=== PATIENT | female | born 1945 | race Caucasian/White ===

== ENCOUNTER 2017-08-16 11:05 | Outpatient (CLI) | payer MEDICARE, BC | END 2017-08-16 11:06 | disposition home or self-care (01) | LOC: BICRAD 11:05 | PROVIDERS: ATTEND Internal Medicine | DX: M54.2 Cervicalgia (principal); M54.6 Pain in thoracic spine; M47.893 Other spondylosis, cervicothoracic region | CPT/HCPCS: 72040; 72072 ==

== ENCOUNTER 2017-08-19 08:00 | Outpatient (CLI) | payer MEDICARE, BC | END 2017-08-19 08:01 | disposition home or self-care (01) | LOC: BICCT 08:00 | PROVIDERS: ATTEND Internal Medicine | DX: R51 Headache (principal); G93.9 Disorder of brain, unspecified | CPT/HCPCS: 70450 ==

== ENCOUNTER 2017-11-07 08:43 | Outpatient (CLI) | payer MEDICARE, BC | END 2017-11-07 08:44 | disposition home or self-care (01) | LOC: BICRAD 08:43 | PROVIDERS: ATTEND Internal Medicine | DX: M54.5 Low back pain (principal); M47.896 Other spondylosis, lumbar region | CPT/HCPCS: 72100 ==

== ENCOUNTER 2018-07-26 09:55 | Inpatient (IN) | payer MEDICARE, BC ==
[2018-07-26 10:49] LABS: #Eosinphils 0.1 thou/uL (0.0-0.7); #Lymphocytes 1.7 thou/uL (1.20-3.40); #Monocytes 0.8 thou/uL (0.11-0.59); %Basophils 0.4 % (0.0-1.0); %Eosinophils 1.4 % (0.0-10.0); %Monocytes 7.7 % (0.0-10.0); %Neutrophils 74.5 % (42.0-75.0); Hemoglobin 13.5 g/dL (12.0-16.0); Mean Corpuscular HGB CONC 33.6 g/dL (32.0-36.0); Mean Corpuscular Hemoglobin 30.7 pg (27.0-31.0); Mean Corpuscular Volume 91.2 fL (78.0-98.0); Mean Platelet Volume 8.1 fL (7.4-10.4); Platelet Count 280 thou/uL (130-400); RBC Distribution Width 13.5 % (11.5-14.5); Red Blood Cell (RBC) Count 4.41 mill/uL (4.20-5.40); White Blood Cell (WBC) Count 10.8 thou/uL (4.8-10.8)
[2018-07-26 11:13] LABS: ALT (SGPT) 18 U/L (8-55); AST (SGOT) 19 U/L (5-34); Albumin 4.2 g/dL (3.4-4.8); Alkaline Phosphatase 62 U/L (40-150); Anion Gap 16 mmol/L (10-20); BUN (Urea Nitrogen) 43 mg/dL (9.8-20.1); Bilirubin, Total 0.5 mg/dL (0.2-1.2); CK (CPK) 77 U/L (29-168); Calc. Creatinine Clearance 0 mL/min (70-130); Calcium 9.9 mg/dL (7.8-10.44); Carbon Dioxide 27 mmol/L (23-31); Chloride 102 mmol/L (98-107); Estimated GFR-MDRD 13; Globulin 2.8 g/dL (2.4-3.5); Glucose 111 mg/dL (83-110); Potassium 3.1 mmol/L (3.5-5.1)
[2018-07-26 11:37] LABS: Sodium 142 mmol/L (136-145)
--- NOTE | 2018-07-26 11:37 | CT ---
CT HEAD WITHOUT CONTRAST; Date: 07/26/18 Multiple axial tomograms obtained through the head without enhancement. INDICATION: Dizziness. FINDINGS: Ventricles have normal size and position. No evidence of intracranial mass or hemorrhage. No evidence of cortical infarct. Sinuses are clear. IMPRESSION: No acute findings. POS: TPC
[2018-07-26] MEDS ORDERED: ALPRAZolam 0.5 MG TAB PO PRN (13:46)
[2018-07-26] MEDS ORDERED: Potassium Chloride 20 MEQ TAB PO SCH (14:30)
--- NOTE | 2018-07-26 15:32 | CON ---
DATE OF CONSULTATION: 07/26/2018 NEPHROLOGY CONSULTATION REASON FOR CONSULTATION: Elevated creatinine. HISTORY OF PRESENT ILLNESS: This is a very pleasant 73-year-old female, who presented for possible CVA, was noted to have a potassium of 3.1, creatinine of 3.45. Her last reported creatinine was 1.1 about one month ago. The patient has had some diarrhea and has been taking some NSAIDs. The patient denies no headaches, numbness, tingling, or weakness. Denies any nausea, vomiting, or chest pain. PAST MEDICAL HISTORY: Significant for hypertension, breast cancer. PAST SURGICAL HISTORY: History of back surgery, cholecystectomy, hysterectomy . FAMILY HISTORY: Negative for ESRD. ALLERGIES: REVIEWED. MEDICATIONS: Home medication list reviewed. REVIEW OF SYSTEMS: A 15-point review of systems was performed and was negative except for positives noted above. NECK: No swelling or lumps. NOSE: No epistaxis or discharge. EYES: No diplopia or pain. MUSCULOSKELETAL: No joint pain. NEUROPSYCHIATRIC SYSTEMS: No suicidal ideation. No ideation. SKIN: Denies any rash or ulcer. CONSTITUTIONAL: No fever or chills. OBJECTIVE: GENERAL: The patient is awake, alert, in no acute distress. VITAL SIGNS: Afebrile, pulse 53, breathing 16, and blood pressure 132/78. GENERAL APPEARANCE AND MENTAL STATUS: Fair. HEAD/NECK: Normocephalic. Atraumatic. EYES: EOMI. No deformity. EARS: Clear. No ulcers. NOSE: Intact. No lesions. MOUTH: Clear. No discharge. THROAT: Clear. No exudate. LUNGS: Clear. No crackles. CARDIAC: S1, S2. No rub. ABDOMEN: Benign. Bowel sounds positive. GENITALIA/RECTUM: Asif absent. BACK/EXTREMITIES: Edema 0+. NEUROLOGICAL: Alert and motor intact. LABORATORY DATA: Labs show creatinine of 3.4. ASSESSMENT: 1. Acute kidney injury with chronic kidney disease, most likely due to diarrhea, nonsteroidal anti-inflammatory drug use. Recommend hydration. 2. Anemia, stable. 3. Medication based on glomerular filtration rate area appropriate. No indication for dialysis at this time. 4. We would recommend ordering renal ultrasound. Job ID: [id number]
[2018-07-26 15:42] VITALS: BMI 36.6
--- NOTE | 2018-07-26 15:42 | ULT ---
ULTRASOUND RENAL BILATERAL STANDARD: History: Acute kidney injury. Comparison: None. FINDINGS: Right kidney measures 9.2 x 5.1 x 5.3 cm. Left kidney measures 10 x 4.9 x 5 cm. Pre void urinary blad emery volume is 161 ml. There is a cyst in the superior pole left kidney measuring 4 cm. Cyst inferior pole left pole measure s 1.6 cm. There is a relatively isoechoic mass inferior pole right kidney measuring up to 1.8 cm, approximately 20% exophytic. IMPRESSION: Concern for a mass in the inferior pole right kidney for which a nonemergent renal protocol CT or MRI is recommended. Code T POS: CET
[2018-07-26] MEDS: Sodium Chloride 0.9% 1,000 ML IV SCH ×2 (15:52→20:35)
[2018-07-26 17:26] LABS: Bilirubin Negative (Negative); Blood, Urine Small (Negative); Clarity TURBID (Clear); Glucose, Urine (Dipstick) Negative (Negative); Leukocyte Large (Negative); Nitrite Negative (Negative); Protein, Urine (Dipstick) Trace mg/dL (Neg-Trace); Specific Gravity, Urine 1.008 (1.002-1.036); Urobilinogen 0.2 mg/dL (0.2-1.0)
[2018-07-26 17:28] LABS: Bacteria/HPF None Seen HPF (None Seen)
[2018-07-26 17:32] LABS: Pathc Cast-AUWi Flag 3.19 (0-2.49)
[2018-07-26 17:40] LABS: Creatinine, Urine 57.9 mg/dL (47-110)
[2018-07-26 17:45] LABS: Hyaline Casts/LPF 0-3 HYALINE CAST LPF (0-3 Hyaline); Other Casts/LPF None Seen LPF (0-3 Hyaline)
--- NOTE | 2018-07-26 18:07 | HP ---
CHIEF COMPLAINT: Generalized weakness/disorientation. HISTORY OF PRESENT ILLNESS: The patient is a very pleasant 73-year-old female with a history of breast cancer treated with mastectomy, hypertension, and hyperlipidemia, who presented to the hospital with complaints of some confusion and generalized weakness. The patient stated that for the past few days, her family has been complaining that she has been acting a little strangely and the patient herself felt that she had some slurred speech and also some confusion. The patient stated that the past weekend, on Tuesday, she had diarrhea all day, also had some diarrhea on Tuesday. She took couple tablets of ibuprofen on Tuesday. On Tuesday, since she had some itching, she took Benadryl 50 mg 3 times on Tuesday. The patient stated that she has been eating and drinking, however, not as much. She was admitted in the ER, labs were drawn, which indicated an elevated creatinine. Her CT head was normal. PAST MEDICAL HISTORY: History of hypertension, depression, history of breast cancer, and hypercholesterolemia. PAST SURGICAL HISTORY: She had a lumpectomy with lymph node dissection of the right breast in 2004, hysterectomy, and back surgery. MEDICATIONS: She takes; 1. Amlodipine 5 mg daily. 2. Celexa 20 mg daily. 3. Alprazolam 0.25 b.i.d. 4. Losartan/hydrochlorothiazide daily. 5. Tamoxifen 10 mg daily. ALLERGIES: SHE IS ALLERGIC TO CODEINE AND HAS INTOLERANCE TO DEMEROL. REVIEW OF SYSTEMS: All negative except for the ones mentioned above in the HPI. FAMILY HISTORY: She denies any family history of heart disease or kidney disease. PHYSICAL EXAMINATION: VITAL SIGNS: In the ER; her blood pressure was 120/60, heart rate of 89, and temperature of 98.8. GENERAL: She is awake, alert, and oriented x3. Does not appear in any distress. CV: S1 and S2 present. No murmurs, rubs, or gallops. HEENT: Appears to be mildly dehydrated. LUNGS: Clear to auscultation. No rhonchi or wheezes noted. ABDOMEN: Soft and nontender. Bowel sounds are present x2. EXTREMITIES: No edema. Pedal pulses present x2. NEUROLOGIC: Neurovascular guerra, no focal deficits noted. SKIN: No cuts, lesions, or bruises noted. LABORATORY RESULTS: As of the following: Her CT head was negative. CBC indicated WBCs of 10.8, hemoglobin of 13.5, hematocrit of 40.2, and platelets were 280. Chemistry; sodium of 142, potassium of 3.1, BUN of , and creatinine of 3.45. Troponin x1 was negative. LFTs were normal. EKG was normal sinus. ASSESSMENT AND PLAN: The patient is a very pleasant 73-year-old female, who presented to the hospital with generalized weakness and some disorientation. 1. Acute kidney injury. Differential is prerenal, intrinsic versus post. This most likely could be prerenal since she had some dehydration. She is also on NICK and has not been eating or drinking very much. Nephrology has been consulted. We will start the patient on some gentle hydration. Also renal ultrasound has been ordered to rule out any obstruction, causes for her elevated creatinine. The patient only took one dose of ibuprofen. She has not been using too much of that. I will hold her losartan and hydrochlorothiazide for now. We will hold all nephrotoxins and continue with the remaining of her medications. Again as I mentioned, we will start some gentle hydration, and we will also check a urine creatinine and a urine sodium. 2. Hypertension. We will continue her home medications except for holding the losartan and the hydrochlorothiazide. We will continue the Norvasc. 3. Hyperlipidemia. We will continue her home medications. 4. History of anxiety. She ran out of her Xanax about a couple of days ago. We will continue her Xanax. 5. Deep venous thrombosis prophylaxis. We will put the patient on some subcu heparin. Job ID: [id number]
[2018-07-26] MEDS: cefTRIAXone\\ROCEPHIN 1 GM in Sodium Chloride 0.9% 100 ML IVPB SCH (20:33)
[2018-07-26] MEDS: Acetaminophen 325 MG TAB PO PRN (20:39)
[2018-07-27] MEDS: Citalopram 20 MG TAB PO SCH (08:57)
[2018-07-27] MEDS: Amlodipine 5 MG TAB PO SCH (08:58)
[2018-07-27 09:01] LABS: #Basophils 0.1 thou/uL (0.0-0.2); #Eosinphils 0.2 thou/uL (0.0-0.7); #Lymphocytes 2.3 thou/uL (1.20-3.40); #Monocytes 0.6 thou/uL (0.11-0.59); #Neutrophils 3.9 thou/uL (1.40-6.50); %Basophils 1.1 % (0.0-1.0); %Eosinophils 3.2 % (0.0-10.0); %Lymphocytes 32.7 % (21.0-51.0); %Monocytes 8.3 % (0.0-10.0); %Neutrophils 54.6 % (42.0-75.0); Hemoglobin 13.2 g/dL (12.0-16.0); Mean Corpuscular HGB CONC 32.8 g/dL (32.0-36.0); Mean Corpuscular Volume 91.7 fL (78.0-98.0); Mean Platelet Volume 8.4 fL (7.4-10.4); Platelet Count 243 thou/uL (130-400); RBC Distribution Width 13.5 % (11.5-14.5); White Blood Cell (WBC) Count 7.1 thou/uL (4.8-10.8)
[2018-07-27 09:15] LABS: Anion Gap 17 mmol/L (10-20); BUN (Urea Nitrogen) 35 mg/dL (9.8-20.1); Calc. Creatinine Clearance 32 mL/min (70-130); Carbon Dioxide 22 mmol/L (23-31); Chloride 108 mmol/L (98-107); Estimated GFR-MDRD 25; Glucose 80 mg/dL (83-110); Potassium 3.3 mmol/L (3.5-5.1); Sodium 144 mmol/L (136-145)
[2018-07-27 10:36] LABS: Anion Gap 18 mmol/L (10-20); BUN (Urea Nitrogen) 34 mg/dL (9.8-20.1); Calc. Creatinine Clearance 35 mL/min (70-130); Calcium 9.3 mg/dL (7.8-10.44); Carbon Dioxide 25 mmol/L (23-31); Chloride 106 mmol/L (98-107); Estimated GFR-MDRD 27; Glucose 91 mg/dL (83-110); Potassium 3.9 mmol/L (3.5-5.1); Sodium 145 mmol/L (136-145)
[2018-07-27] MEDS: Sodium Chloride 0.9% 1,000 ML IV SCH (12:11)
[2018-07-27] MEDS ORDERED: ALPRAZolam 0.25 MG TAB PO PRN (16:15)
--- NOTE | 2018-07-27 16:27 | PDOC.PN ---
- Subjective Encounter Start Date: 07/27/18 Encounter Start Time: 10:30 Subjective: pt up in bed no complains - Objective Resuscitation Status - Order Detail: 07/26/18 13:45 Resuscitation Status Routine Resuscitation Status: FULL: Full Resuscitation Vital Signs & Weight: Vital Signs (12 hours) Temp Pulse Resp BP BP Pulse Ox 07/27/18 12:33 98.6 F 76 18 151/63 H 95 07/27/18 08:58 69 136/80 07/27/18 07:32 98.3 F 69 18 136/80 95 07/27/18 05:12 98.1 F 71 18 108/58 L 93 L Weight Weight 175 lb 1 oz I&O: 07/26/18 07/27/18 07/28/18 06:59 06:59 06:59 Intake Total 1837 Balance 1837 Result Diagrams: 07/27/18 07:10 07/27/18 09:46 Phys Exam - Physical Examination Neck: no nodes, no JVD, supple, full ROM Respiratory: no wheezing, no rales, no rhonchi, wheezing present, clear to auscultation bilateral Cardiovascular: RRR, no significant murmur, no rub, gallop, irregular Gastrointestinal: soft, non-tender, no distention, positive bowel sounds Dx/Plan (1) EVENS (acute kidney injury) Code(s): N17.9 - ACUTE KIDNEY FAILURE, UNSPECIFIED Status: Acute (2) HTN (hypertension) Code(s): I10 - ESSENTIAL (PRIMARY) HYPERTENSION Status: Acute (3) Breast cancer Status: Acute (4) Renal mass Code(s): N28.89 - OTHER SPECIFIED DISORDERS OF KIDNEY AND URETER Status: Acute - Plan pt's creatinine is improving -: ultrasound indicated renal mass in inferior pole of the kidney -: pt will need CT with contrast and her gfr is still low -: will talk with nephrology may consider working it up -: outpatient when gfr has improved * . Review of Systems - Review of Systems ENT: negative: Ear Pain, Ear Discharge, Nose Pain, Nose Discharge, Nose Congestion, Mouth Pain, Mouth Swelling, Throat Pain, Throat Swelling, Other Respiratory: negative: Cough, Dry, Shortness of Breath, Hemoptysis, SOB with Excertion, Pleuritic Pain, Sputum, Wheezing Cardiovascular: negative: chest pain, palpitations, orthopnea, paroxysmal nocturnal dyspnea, edema, light headedness, other Gastrointestinal: negative: Nausea, Vomiting, Abdominal Pain, Diarrhea, Constipation, Melena, Hematochezia, Other - Medications/Allergies Allergies/Adverse Reactions: Allergies Allergy/AdvReac Type Severity Reaction Status Date / Time codeine Allergy Verified 07/26/18 16:45 Medications: Current Medications Acetaminophen (Tylenol) 650 mg PO Q4H PRN PRN Reason: Headache/Fever/Mild Pain (1-3) Last Admin: 07/26/18 20:39 Dose: 650 mg Alprazolam (Xanax) 0.25 mg PO Q8HR PRN PRN Reason: Anxiety Amlodipine Besylate (Norvasc) 5 mg PO DAILY [facility] Last Admin: 07/27/18 08:58 Dose: 5 mg Atorvastatin Calcium (Lipitor) 20 mg PO DAILY [facility] Citalopram Hydrobromide (Celexa) 40 mg PO DAILY [facility] Last Admin: 07/27/18 08:57 Dose: 40 mg Sodium Chloride (Normal Saline 0.9%) 1,000 mls @ 75 mls/hr IV .[id number] [facility] Last Admin: 07/27/18 12:11 Dose: 1,000 mls Ceftriaxone Sodium 1 gm/ (Sodium Chloride) 100 mls @ 200 mls/hr IVPB Q24HR [facility] Last Admin: 07/26/18 20:33 Dose: 100 mls Sodium Chloride (Flush - Normal Saline) 10 ml IVF Q12HR [facility] Last Admin: 07/27/18 08:58 Dose: Not Given Sodium Chloride (Flush - Normal Saline) 10 ml IVF PRN PRN PRN Reason: Saline Flush Tamoxifen Citrate (Nolvadex) 10 mg PO DAILY [facility] Last Admin: 07/27/18 08:57 Dose: Not Given
--- NOTE | 2018-07-27 19:16 | PRG ---
DATE OF SERVICE: 07/27/2018 SUBJECTIVE: The patient is a 73-year-old female, being seen for acute kidney injury. The patient denies any nausea, vomiting, or chest pain. OBJECTIVE: GENERAL: The patient is awake and alert. VITAL SIGNS: Afebrile, pulse 84, breathing 16, blood pressure 134/80. GENERAL APPEARANCE AND MENTAL STATUS: Fair. HEAD/NECK: Normocephalic, atraumatic. EYES: EOMI. No deformity. EARS: Clear. No ulcers. NOSE: Intact. No lesions. MOUTH: Clear. No discharge. THROAT: Clear. No exudate. LUNGS: Clear. No crackles. CARDIAC: S1, S2. No rub. ABDOMEN: Benign. Bowel sounds positive. GENITALIA/RECTUM: Asif absent. BACK/EXTREMITIES: Edema 0+. NEUROLOGICAL: Alert and motor intact. LABORATORY DATA: Labs show potassium of 3.9, creatinine 1.8. ASSESSMENT AND PLAN: 1. Acute kidney injury, improved. 2. Hypertension, stable. 3. Anemia, stable. 4. Medication based on glomerular filtration rate area appropriate. No indication for dialysis. Job ID: [id number]
[2018-07-27] MEDS: cefTRIAXone\\ROCEPHIN 1 GM in Sodium Chloride 0.9% 100 ML IVPB SCH (20:18)
[2018-07-27] MEDS: Acetaminophen 325 MG TAB PO PRN (20:18)
[2018-07-28] MEDS: Sodium Chloride 0.9% 1,000 ML IV SCH (03:00)
[2018-07-28] MEDS: Citalopram 20 MG TAB PO SCH (08:31)
[2018-07-28] MEDS: Amlodipine 5 MG TAB PO SCH (08:31)
[2018-07-28] MEDS ORDERED: Atorvastatin Calcium 20 MG TAB PO SCH (09:00)
[2018-07-28 10:38] VITALS: BP 133/82; TEMP 99
[2018-07-28 10:58] LABS: Anion Gap 14 mmol/L (10-20); BUN (Urea Nitrogen) 22 mg/dL (9.8-20.1); Calc. Creatinine Clearance 57 mL/min (70-130); Calcium 8.9 mg/dL (7.8-10.44); Carbon Dioxide 27 mmol/L (23-31); Chloride 106 mmol/L (98-107); Estimated GFR-MDRD 48; Glucose 95 mg/dL (83-110); Potassium 3.1 mmol/L (3.5-5.1); Sodium 144 mmol/L (136-145)
[2018-07-28] MEDS ORDERED: Potassium Chloride 20 MEQ TAB PO SCH ×2 (12:15→12:45)
--- NOTE | 2018-07-28 12:57 | PQF ---
DATE: 07-28-18 ATTN: DR. MERYL SUMMERS Please exercise your independent, professional judgment in responding to the clarification form. Clinical indicators are provided on the bottom of this form for your review Please check appropriate box(s): [ ] UTI [ x ] Contaminated urine specimen without UTI PT'S CX WAS NEGATIVE [ ] Other diagnosis [ ] Unable to determine In addition, please specify: Present on Admission (POA): [ x ] Yes [ ] No [ ] Unable to determine For continuity of documentation, please document condition throughout progress notes and discharge summary. Thank You. CLINICAL INDICATORS - SIGNS / SYMPTOMS / LABS URINE 07-26-18: URINE BLOOD: SMALL H UR LEUKOCYTE ESTERASE: LARGE H URINE WBC: GREATER THAN 50-TNTC H TEMP: ER: 99.3 07-26-18: 99.0 RISK FACTORS: ER: REPORTS CONFUSION, IN WITH ACUTE RENAL FAILURE H&P: GENERALIZED WEAKNESS AND DISORIENTATION, MILDLY DEHYDRATED, HAS NOT BEEN EATING OR DRINKING MUCH TREATMENT: ER: NS IVF MAR: 07-26-18: CHRISTIE DURAND (This form is maintained as a part of the permanent medical record) 2014 [email or web address] All Rights Reserved LIS [email or web address] Office: [phone] [facility] MED[facility] CENTERPablo
--- NOTE | 2018-07-29 06:17 | DIS ---
DATE OF ADMISSION: 07/26/2018 DATE OF DISCHARGE: 07/28/2018 DISCHARGE DIAGNOSES: 1. Acute kidney injury. 2. Weakness. 3. Hypertension. 4. Right inferior kidney mass noted on the ultrasound. HOSPITAL COURSE: The patient is a very pleasant 73-year-old female who initially presented to the hospital with generalized weakness. She was found to have creatinine of 3.45, which has been significantly elevated from her baseline. The patient was hydrated. Nephrology was consulted. Also, her losartan was hold. Upon hydration, the patient's creatinine improved to 1.1 on discharge. The patient will be discharged home. She will follow up with her primary care doctor. The patient on ultrasound was shown to have an inferior pole mass in the right kidney. I talked extensively with the patient stating that she will follow up with her primary care doctor and also Nephrology and Urology, recommendation was provided for the patient. I explained to the patient that want to undergo a CT scan with contrast given her recent kidney injury and maybe to wait a little bit since it was indicated as a non emergent follow up CT, MRI, and ultrasound. Also, the patient was notified that she needs to follow up this with her primary care given her history of breast cancer. The patient will do so. The patient has been asked to stay away from any NSAIDs including ibuprofen, Advil, naproxen, and also to hold off on her losartan for the next couple days and restarted maybe on . Her blood pressures have been pretty stable. MEDICATIONS: 1. Amlodipine 10 mg daily. 2. Citalopram 1 p.o. daily. 3. Nebivolol 5 mg daily. 4. Atorvastatin 20 mg daily. 5. 0.25 mg q.8 hours p.r.n. PHYSICAL EXAMINATION: VITAL SIGNS: Temperature 99.0, hear rate 71, respirations 18, oxygen saturation 93% on room air, blood pressure 133/82. GENERAL: She is awake, alert, and oriented x3. Does not appear in distress. CV: S1 and S2 present. No murmurs, rubs, or gallops. ABDOMEN: Soft and nontender. Bowel sounds are present x2. EXTREMITIES: No edema. Again, she will be discharged home. She will follow up with the Primary especially to get a CT with contrast for evaluation of the right kidney mass. Job ID: [id number]
--- NOTE | 2018-07-31 11:43 | PRG ---
DATE OF SERVICE: 07/28/2018 SUBJECTIVE: A 73-year-old female, being seen for acute kidney injury. The patient denies any nausea, vomiting, or chest pain. OBJECTIVE: CONSTITUTIONAL: On examination, the patient is awake and alert. VITAL SIGNS: Afebrile, pulse 71, breathing 16, and blood pressure 133/82. GENERAL APPEARANCE AND MENTAL STATUS: Fair. HEAD/NECK: Normocephalic. Atraumatic. EYES: EOMI. No deformity. EARS: Clear. No ulcers. NOSE: Intact. No lesions. MOUTH: Clear. No discharge. THROAT: Clear. No exudate. LUNGS: Clear. No crackles. CARDIAC: S1, S2. No rub. ABDOMEN: Benign. Bowel sounds positive. GENITALIA/RECTUM: Asif absent. BACK/EXTREMITIES: Edema 0+. NEUROLOGICAL: Alert and motor intact. SKIN: LYMPHATICS: LABORATORY DATA: Labs show creatinine 1.1. ASSESSMENT AND PLAN: 1. ____CKD s=tage 2 . 2. Hypertension, stable. 3. Anemia, stable. 4. . 5. Hypokalemia. Recommend high potassium diet. 6. Abnormal renal ultrasound with a right inferior pole mass. We would recommend CT either as an outpatient or inpatient and Urology followup. Job ID: [id number] MTDD
--- NOTE | 2018-08-01 12:02 | EKG ---
Test Reason : Blood Pressure : / mmHG Vent. Rate : 064 BPM Atrial Rate : 064 BPM P-R Int : 142 ms QRS Dur : 084 ms QT Int : 428 ms P-R-T Axes : 044 -07 023 degrees QTc Int : 441 ms Normal sinus rhythm Normal ECG Confirmed by JOVANNY GRIFFITH D.O. ([id number]), industrial editor NANCY LOPEZ ([id number]) on 08/01/2018 12:02:20 PM Referred By: Confirmed By:JOVANNY GRIFFITH D.O.
== END 2018-07-28 15:44 | disposition home or self-care (01) | DRG 684 ==
LOC: ERS 09:55 → T4-A 15:34
PROVIDERS: ADMIT Internal Medicine; ATTEND Internal Medicine
DX: N17.9 Acute kidney failure, unspecified (principal); E78.5 Hyperlipidemia, unspecified; F32.9 Major depressive disorder, single episode, unspecified; E86.0 Dehydration; F41.9 Anxiety disorder, unspecified; N28.89 Other specified disorders of kidney and ureter; I12.9 Hypertensive chronic kidney disease with stage 1 through stage 4 chronic kidney disease, or unspecified chronic kidney disease; N18.9 Chronic kidney disease, unspecified; D64.9 Anemia, unspecified; E87.6 Hypokalemia; Z85.3 Personal history of malignant neoplasm of breast; Z90.10 Acquired absence of unspecified breast and nipple; Z90.49 Acquired absence of other specified parts of digestive tract
CPT/HCPCS: 36410; 36415; 70450; 76770; 80048; 80053; 81003; 81015; 82550; 82570; 84300; 84484; 85025; 87086; 93005; 96360; 96361; J0696; J7050

== ENCOUNTER 2018-09-25 07:42 | Outpatient (CLI) | payer MEDICARE, BC ==
--- NOTE | 2018-09-25 10:44 | MRI ---
MRI ABDOMEN WITHOUT CONTRAST: HISTORY: Abnormal renal mass. COMPARISON: Ultrasound 07/26/2018. FINDINGS: Exam is limited as there is no intravenous contrast administered. This causes extreme limitation of renal mass evaluation. LAP band is in place. There are multiple bilateral renal cysts largest superior pole left kidney peter suring up to 3.8 cm. There is a mass inferior pole right kidney approximately 20% exophytic measuring up to 1.8 cm. This is not definitively a cyst. The dilated loops of bowel in the abdomen. No retroperitoneal adenopathy. No intrahepatic or extrahepatic biliary dilatation. Pancreas is unremarkable. Spleen is unremarkabl e. Aortic contour is nonaneurysmal. No signal abnormality within the liver. There is moderate hepatic steatosis with hepatic fraction of 25% and fat% is percent is 22.1%. IMPRESSION: Renal evaluation is severely limited without intravenous contrast nor a diffusion sequence. Revisual ization of the 1.8 cm mass approximately 20% exophytic of the inferior pole right kidney. This is co ncerning for underlying renal cell carcinoma. Urologic consultation advised. No adjacent adenopathy . At a minimum, a close followup would be recommended. POS: TPC
== END 2018-09-25 07:43 | disposition home or self-care (01) ==
LOC: BICMRI 07:42
PROVIDERS: ATTEND Internal Medicine Nephrology
DX: N28.89 Other specified disorders of kidney and ureter (principal)
CPT/HCPCS: 74181

== ENCOUNTER 2018-10-18 12:56 | Outpatient (CLI) | payer MEDICARE, BC ==
[~2018-10-18 12:56] MED LIST: Gadobenate Dimeglumine 529 MG/1 ML (20ML VIAL) ONE; Iopamidol 370 76% 100 ML VIAL ONE
--- NOTE | 2018-10-18 14:10 | RAD ---
TWO VIEWS CHEST: Date: 10-18-18 Provided Clinical History: Shortness of breath. FINDINGS: Comparison 06-19-18. Cardiac and mediastinal silhouette is within normal limits. Calcified granuloma is seen involving the right lower lobe. No focal consolidation, pleural fluid, or pneumothorax apparent. IMPRESSION: No evidence for an acute cardiopulmonary process. POS: TPC
--- NOTE | 2018-10-18 14:52 | CT ---
CT ABDOMEN PERFORMED WITH AND WITHOUT INTRAVENEOUS CONTRAST ENHANCEMENT: History: Evaluation of right renal lesion noted in the inferior pole of right kidney on previous ultr asound MR study. Comparison: 09-25-18, 09-26-17 MRI and ultrasound examinations respectively. FINDINGS: The lung bases are clear. A lap band is present. The liver shows fatty change. The spleen and pancreas regions are unremarkable . The gallbladder has been removed. Right and left adrenal glands are normal in appearance. Right and left kidneys are normal in size. Th ere is a large upper pole left renal cyst. It measures 4 cm in AP dimension. There are multiple other hypodense lesions which are too small to characterize involving both kidneys. I do not see a definit e discrete solid mass. The small hypodense exophytic density seen in the lower pole of the right kidn ey which is axial image 38 and coronal image 72, too small to characterize as a cyst, but I feel that given some other similar lesions also represent cysts. I do not see a definite mass in the adjacent renal parenchyma associated with this small exophytic lesion. There is some slight lobulation to the contour to the kidney and some cortical thinning which may be causing the appearance noted on the ult rasound examination. No significant periaortic or mesenteric adenopathy visualized. IMPRESSION: 1. Hypodense lesions involving both kidneys which appear to most likely represent cysts. I cannot see a definitive discrete inferior pole solid right renal lesion. 2. Fatty changes of the liver. POS: DAVY
--- NOTE | 2018-10-18 15:48 | MRI ---
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 Pre and postcontrast enhanced MRI images of the brain obtained on 10/19/15. Comparison made to a previous exam from 08/19/17. Images demonstrate an approximately 4.6 mm dural based lesion along the posterolateral aspect of the left frontal lobe. This is compatible with a tiny dural based lesion compatible with a meningioma. Th is has not significantly changed since the previous exam from 08/19/17. No other intracranial masses or lesions seen. No abnormal areas of intracranial enhancement seen. Mild cortical atrophy and deep white matter ische ronda changes seen. No evidence of areas of diffusion restriction seen. IMPRESSION: Tiny approximately 4.6 mm dural based lesion posterior and lateral to the left frontal lobe. This is compatible with a tiny meningioma. No other significant intracranial abnormality seen. POS: KELLIE
== END 2018-10-18 12:57 | disposition home or self-care (01) ==
LOC: CT 12:56 → RAD 12:57
PROVIDERS: ATTEND Internal Medicine
DX: D32.0 Benign neoplasm of cerebral meninges (principal); R06.09 Other forms of dyspnea; N28.9 Disorder of kidney and ureter, unspecified; K76.0 Fatty (change of) liver, not elsewhere classified; G93.9 Disorder of brain, unspecified
CPT/HCPCS: 70553; 71046; 74170; 77063; 77067; 82565; 94060; 94727; 94729; A9577; Q9967

== ENCOUNTER 2018-12-02 14:13 | Emergency (ER) | payer MEDICARE, BC ==
--- NOTE | 2018-12-02 14:42 | RAD ---
Right shoulder: 3 views INDICATIONS: Injury No evidence of fracture or dislocation. AC joint normally aligned. IMPRESSION: No acute finding
== END 2018-12-02 15:53 | disposition home or self-care (01) ==
LOC: ERS 14:13
DX: S46.911A Strain of unspecified muscle, fascia and tendon at shoulder and upper arm level, right arm, initial encounter (principal); W01.0XXA Fall on same level from slipping, tripping and stumbling without subsequent striking against object, initial encounter

== ENCOUNTER 2019-05-09 11:22 | Outpatient (CLI) | payer MEDICARE, BC ==
--- NOTE | 2019-05-09 14:25 | MRI ---
MRI THORACIC SPINE WITHOUT CONTRAST: INDICATIONS: Paresthesia. FINDINGS: The thoracic vertebrae maintain normal height and alignment. Vertebral body signal is normal. Disk sp aces are maintained. Mild degenerative change noted with mild osteophytes from the thoracic vertebrae . No evidence of significant disk bulge or disk protrusion at any of the thoracic levels. Mild disc bul ge seen at T3-T4, T4-T5 and T5-T6. These mild bulges flatten the thecal sac however the anterior suba rachnoid space is preserved. The thoracic cord exhibits normal signal. There is no central canal or f oraminal stenosis identified. There is a cyst seen in the upper left abdomen, which is incompletely imaged on this exam. This corre sponds to a cyst from the superior left kidney seen on CT from 10/18/2018. IMPRESSION: Unremarkable MRI of the thoracic spine. POS: OFF
== END 2019-05-09 11:23 | disposition home or self-care (01) ==
LOC: BICMRI 11:22
PROVIDERS: ATTEND Psychiatry & Neurology Neurology
DX: R20.2 Paresthesia of skin (principal)
CPT/HCPCS: 72146

== ENCOUNTER 2019-05-09 11:36 | Outpatient (CLI) | payer MEDICARE, BC ==
--- NOTE | 2019-05-09 13:28 | RAD ---
CHEST TWO VIEWS: 05/09/2019 PROVIDED CLINICAL HISTORY: Cough. COMPARISON: 10/18/2018 FINDINGS: The cardiac and mediastinal silhouette is within normal limits. No focal consolidation, pleural fluid , or pneumothorax apparent. IMPRESSION: No evidence for an acute cardiopulmonary process. POS: TPC
--- NOTE | 2019-05-09 13:29 | RAD ---
RIGHT RIB SERIES TWO VIEWS: 05/09/2019 PROVIDED CLINICAL HISTORY: Pain without injury. FINDINGS: There is no evidence for a displaced right-sided rib fracture. No evidence for pleural fluid or pneum othorax. No radiographically apparent lytic or blastic lesions. IMPRESSION: No evidence for an acute process. POS: TPC
== END 2019-05-09 11:37 | disposition home or self-care (01) ==
LOC: BICRAD 11:36
PROVIDERS: ATTEND Internal Medicine
DX: R05 Cough (principal); R07.9 Chest pain, unspecified
CPT/HCPCS: 71046

== ENCOUNTER 2019-10-12 08:22 | Outpatient (CLI) | payer MEDICARE, BC ==
--- NOTE | 2019-10-12 09:39 | MMO ---
Bilateral MAMMO Bilat Diag DDI+LOUISE. CLINICAL HISTORY: Patient is 74 years old and is seen for diagnostic exam and pain in the right breast. The patient has no family history of breast cancer. The patient has a history of malignant (generic) in the right breast 2004. The patient has a history of right Excisional Biopsy in 2004 and right Lumpectomy in 2004. VIEWS: The views performed were: bilateral craniocaudal with tomosynthesis; bilateral mediolateral oblique with tomosynthesis; bilateral mediolateral with tomosynthesis; and right exaggerated craniocaudal. FILMS COMPARED: The present examination has been compared to prior imaging studies performed at [place] on 10/18/2018. This study has been interpreted with the assistance of computer-aided detection. MAMMOGRAM FINDINGS: There are scattered fibroglandular densities. Finding 1: There are stable benign appearing calcifications seen in both breasts. Finding 2: There is a stable post-surgical scar seen in the upper-outer region of the right breast. There are no suspicious masses, suspicious calcifications, or new areas of architectural distortion. IMPRESSION: THERE IS NO MAMMOGRAPHIC EVIDENCE OF MALIGNANCY. A ROUTINE FOLLOW-UP MAMMOGRAM IN 1 YEAR IS RECOMMENDED. THE RESULTS OF THIS EXAM WERE SENT TO THE PATIENT. ACR BI-RADS Category 2 - Benign finding MAMMOGRAPHY NOTE: 1. A negative mammogram report should not delay a biopsy if a dominant of clinically suspicious mass is present. 2. Approximately 10% to 15% of breast cancers are not detected by mammography. 3. Adenosis and dense breasts may obscure an underlying neoplasm. Reported by: OPAL BAPTISTE MD Electonically Signed: [id number]
== END 2019-10-12 08:23 | disposition home or self-care (01) ==
LOC: BICMAMMO 08:22
PROVIDERS: ATTEND Internal Medicine
DX: N64.4 Mastodynia (principal)
CPT/HCPCS: 77066; G0279

== ENCOUNTER 2020-04-02 09:11 | Outpatient (CLI) | payer MEDICARE, BC ==
[2020-04-02] MEDS ORDERED: Magnevist 469MG/ML 20 ML VIAL ONE (14:29)
--- NOTE | 2020-04-03 09:29 | MRI ---
MRI OF BRAIN WITH AND WITHOUT CONTRAST: INDICATION: Paresthesias of skin. COMPARISON: MRI BRAIN 10/18/2018. FINDINGS: Ventricles have normal size and position. FLAIR sequence shows numerous scattered white matter hyper intensities seen in both cerebral hemispheres involving subcortical and deep white matter. There are ischemic brainstem changes seen at the level of the mihaela and cerebellar peduncles. These findings a ppear stable from the prior study. Postcontrast images again reveal a small dural-based enhancing nodule posterolateral frontal lobe reg ion which was present on the prior exam. This continues to measure approximately 6 mm and is unchang ed in size and appearance. No other abnormal enhancement identified. Dural venous sinuses and cerebral arteries showed expected flow voids. Paranasal sinuses are clear. IMPRESSION: 1. Moderate chronic ischemic white matter changes appear stable from prior exam. 2. Tiny dural-based enhancing nodule posterolateral left frontal lobe is unchanged and is consistent with small meningioma. 3. No acute process. POS: [facility]
== END 2020-04-02 09:12 | disposition home or self-care (01) ==
LOC: BICMRI 09:11
PROVIDERS: ATTEND Psychiatry & Neurology Neurology
DX: R20.2 Paresthesia of skin (principal); I67.82 Cerebral ischemia; G93.89 Other specified disorders of brain
CPT/HCPCS: 70553; A9579

== ENCOUNTER 2020-11-14 18:40 | Observation (INO) | payer MEDICARE, BC ==
[~2020-11-14 18:40] MED LIST changes: -Gadobenate Dimeglumine 529 MG/1 ML (20ML VIAL) ONE; -Iopamidol 370 76% 100 ML VIAL ONE; +Iopamidol-370 76% 500 ML 1 ML ONE
[2020-11-14 19:22] LABS: #Basophils 0.1 thou/uL (0.0-0.2); #Eosinphils 0.1 thou/uL (0.0-0.7); #Lymphocytes 1.9 thou/uL (1.20-3.40); #Monocytes 1.4 thou/uL (0.11-0.59); #Neutrophils 15.2 thou/uL (1.40-6.50); %Basophils 0.4 % (0.0-1.0); %Eosinophils 0.6 % (0.0-10.0); %Lymphocytes 10.2 % (21.0-51.0); %Monocytes 7.3 % (0.0-10.0); %Neutrophils 81.5 % (42.0-75.0); Hemoglobin 13.2 g/dL (12.0-16.0); Mean Corpuscular HGB CONC 32.8 g/dL (32.0-36.0); Mean Corpuscular Hemoglobin 31.6 pg (27.0-31.0); Mean Corpuscular Volume 96.2 fL (78.0-98.0); Mean Platelet Volume 8.5 fL (7.4-10.4); Platelet Count 290 thou/uL (130-400); Red Blood Cell (RBC) Count 4.19 mill/uL (4.20-5.40); White Blood Cell (WBC) Count 18.6 thou/uL (4.8-10.8)
[2020-11-14 19:40] LABS: ALT (SGPT) 22 U/L (8-55); AST (SGOT) 19 U/L (5-34); Albumin 4.4 g/dL (3.4-4.8); Alkaline Phosphatase 88 U/L (40-110); Anion Gap 15 mmol/L (10-20); BUN (Urea Nitrogen) 13 mg/dL (9.8-20.1); Bilirubin, Total 0.5 mg/dL (0.2-1.2); Calc. Creatinine Clearance 0 mL/min (70-130); Carbon Dioxide 27 mmol/L (23-31); Chloride 102 mmol/L (98-107); Globulin 2.8 g/dL (2.4-3.5); Glucose 108 mg/dL (83-110); Potassium 3.4 mmol/L (3.5-5.1); Protein, Total 7.2 g/dL (5.8-8.1); Sodium 141 mmol/L (136-145)
[2020-11-14] MEDS ORDERED: Ondansetron PF 4 MG/2 ML Vial ONE (20:19)
[2020-11-14 20:39] LABS: Bilirubin Negative (Negative); Blood, Urine Trace (Negative); Clarity Turbid (Clear); Glucose, Urine (Dipstick) Normal (Negative); Ketone, Urine Negative (Negative); Leukocyte 500 Leu/uL (Negative); Nitrite Negative (Negative); Protein, Urine (Dipstick) Negative (Neg-Trace); Specific Gravity, Urine 1.017 (1.002-1.036); Urobilinogen Normal mg/dL (Less than 2); WBC/HPF Greater than 50 HPF (0-3)
[2020-11-14 20:40] LABS: Bacteria/HPF 2+ HPF (None Seen)
[2020-11-14] MEDS ORDERED: Acetaminophen 500 MG TAB ONE (21:39)
[2020-11-14] MEDS ORDERED: Promethazine HCl 25 MG/ML VIAL IM PRN (23:47)
[2020-11-14] MEDS ORDERED: Morphine 4 MG/ML VIAL SLOW IVP PRN (23:47)
[2020-11-14] MEDS ORDERED: Ondansetron PF 4 MG/2 ML Vial IVP PRN (23:47)
[2020-11-14] MEDS ORDERED: Dextrose 5% in Water 1,000 ML IV PRN (23:47)
[2020-11-14] MEDS ORDERED: Morphine 2 MG/ML VIAL SLOW IVP PRN (23:47)
[2020-11-14] MEDS ORDERED: hydrALAZINE 20 MG/ML VIAL SLOW IVP PRN (23:47)
[2020-11-14] MEDS ORDERED: Dextrose 50% Abboject 50 ML SYRINGE SLOW IVP PRN (23:47)
[2020-11-15] MEDS: Piperacillin/Tazobactam 3.375 GM in Sodium Chloride 0.9% 100 ML IVPB SCH ×2 (00:06→05:27)
[2020-11-15] MEDS: Lactated Ringer's 1,000 ML IV SCH ×2 (00:07→08:56)
[2020-11-15] MEDS ORDERED: ALPRAZolam 0.25 MG TAB PO SCH (00:15)
[2020-11-15 00:45] VITALS: BMI 36.1
[2020-11-15] MEDS ORDERED: Acetaminophen 500 MG TAB PO PRN (03:20)
[2020-11-15 05:06] LABS: SARS-CoV-2 PCR by NAA Not Detected (NotDetected)
[2020-11-15] MEDS ORDERED: Fentanyl 100 MCG/2 ML VIAL ONE ×2 (08:24→10:53)
[2020-11-15] MEDS ORDERED: Promethazine HCl 25 MG/ML VIAL IM PRN ×2 (08:24→10:19)
[2020-11-15] MEDS ORDERED: Ondansetron HCl/PF 4 MG/2 ML Vial IVP PRN (08:24)
[2020-11-15] MEDS ORDERED: Promethazine HCl 25 MG/ML VIAL SLOW IVP PRN (08:24)
[2020-11-15] MEDS ORDERED: Bupivacaine 0.25% HCL 30 ML VIAL ONE (08:37)
[2020-11-15] MEDS ORDERED: Lidocaine 1% w/Epinephrine 1:100K 20 ML VIAL ONE (08:37)
[2020-11-15] MEDS ORDERED: Lidocaine 1% PF 5 ML VIAL ONE (09:00)
[2020-11-15] MEDS ORDERED: ePHEDrine Sulfate 50 MG/10 ML VIAL ONE (09:00)
[2020-11-15] MEDS ORDERED: Famotidine 20 MG TAB PO SCH ×2 (09:00→21:00)
[2020-11-15] MEDS ORDERED: Succinylcholine 200 MG/10 ml SYRINGE FS ONE (09:00)
[2020-11-15] MEDS ORDERED: Rocuronium Bromide 10 MG/ML (10ML VIAL) ONE (09:00)
[2020-11-15] MEDS ORDERED: Famotidine/PF 20 mg/2ml Vial SLOW IVP SCH ×2 (09:00→21:00)
[2020-11-15] MEDS ORDERED: PROPOFOL 200 MG/20 ML VIAL ONE (09:00)
[2020-11-15] MEDS ORDERED: Dexamethasone 20 MG/5 ML VIAL ONE (09:00)
[2020-11-15] MEDS ORDERED: Ondansetron PF 4 MG/2 ML Vial ONE (09:00)
[2020-11-15] MEDS ORDERED: Glycopyrrolate 0.2 MG/ML 5 ML SYRINGE ONE (09:00)
[2020-11-15] MEDS ORDERED: ALPRAZolam 0.25 MG TAB PO PRN (10:12)
[2020-11-15] MEDS ORDERED: SUGAMMADEX SODIUM 200 MG/2 ML VIAL ONE (10:17)
[2020-11-15] MEDS ORDERED: hydrALAZINE 20 MG/ML VIAL SLOW IVP PRN (10:19)
[2020-11-15] MEDS ORDERED: D5 1/2 NS w/20 mEq KCL 1,000 ML IV SCH (10:19)
[2020-11-15] MEDS ORDERED: traMADol HCl 50 MG TAB PO PRN ×2 (10:19)
[2020-11-15] MEDS ORDERED: Dextrose 5% in Water 1,000 ML IV PRN (10:19)
[2020-11-15] MEDS ORDERED: Morphine 4 MG/ML VIAL SLOW IVP PRN (10:19)
[2020-11-15] MEDS ORDERED: Dextrose 50% Abboject 50 ML SYRINGE SLOW IVP PRN (10:19)
[2020-11-15] MEDS ORDERED: Morphine 2 MG/ML VIAL SLOW IVP PRN (10:19)
[2020-11-15] MEDS ORDERED: Ondansetron PF 4 MG/2 ML Vial IVP PRN (10:19)
[2020-11-15 12:03] VITALS: BP 97/60; TEMP 97.5
[2020-11-16] MEDS ORDERED: Amlodipine 5 MG TAB PO SCH (09:00)
[2020-11-16] MEDS ORDERED: Nebivolol HCl 5 MG TAB PO SCH (09:00)
== END 2020-11-15 13:24 | disposition home or self-care (01) ==
LOC: ERS 18:40 → INTOOBSV 22:47 → SJJU 22:47
PROVIDERS: ADMIT Surgery; ATTEND Surgery
PROC: 0DTJ4ZZ Resection of Appendix, Percutaneous Endoscopic Approach (ICD-10-PCS; principal; 2020-11-14)
DX: K35.80 Unspecified acute appendicitis (principal); I10 Essential (primary) hypertension; E66.9 Obesity, unspecified; Z68.36 Body mass index [BMI] 36.0-36.9, adult; Z79.899 Other long term (current) drug therapy; Z88.5 Allergy status to narcotic agent; Z20.822 Contact with and (suspected) exposure to COVID-19
CPT/HCPCS: 44970; 74177; 80053; 83605; 85025; 87040; 87086; 87149 ×2; 88304; 96374; 99285; U0003; U0005; 36415; 81003; 81015; 87635; 96365; 96366; 96375; G0378; J1100; J2405; J2543; J2704; J3010; J3480; J3490; Q9967; S0020; S0028